=== PATIENT | female | born 1975 | race Caucasian/White ===

== ENCOUNTER → 2025-05-07 | Outpatient (CLI) | payer BC ==
[~2025-05-07] MED LIST: GADOTERATE MEGLUMINE 10 MMOL/20 ML VIAL IV ONE
--- NOTE | 2025-05-07 19:57 | HMCIMG ---
EXAM: MR Lumbar Spine Without and With Intravenous Contrast. CLINICAL HISTORY: Radiculopathy. Thoracolumbar region. TECHNIQUE: Magnetic resonance images of the lumbar spine in multiple planes. CONTRAST: Yes. COMPARISON: None. FINDINGS: For this examination, spinal levels were labeled assuming five non-rib bearing, lumbar-type vertebrae with the inferior labeled L5. No acute fracture. Mild levoscoliosis. Normal lordotic curvature. Mild multilevel spondylosis is evident by small marginal osteophytes and facet joint arthropathy. Mild multilevel disc desiccation noted. Mild facet joint synovitis at the L3-L4, L4-L5, and L5-S1 levels. Normal vertebral body and disc heights. Modic type II changes in the anterior corners of the contiguous endplates at the T11-T12, T12-L1, L1-L2, and L2-L3 levels. Conus medullaris terminates at the T12-L1 level. No abnormal epidural masses. Mild subcutaneous edema in the lower back. Small, simple cortical cyst in the upper pole of right kidney. Individual spinal levels are described as follows: T12-L1: No disc bulge or herniation. No neural foraminal, lateral recess or spinal canal stenosis. L1-L2: No disc bulge or herniation. No neural foraminal, lateral recess or spinal canal stenosis. L2-L3: No disc bulge or herniation. No neural foraminal, lateral recess or spinal canal stenosis. L3-L4: 3 mm left predominant disc osteophyte complex bulge causing mild indentation on the anterior thecal sac. No neural foraminal or lateral recess stenosis. L4-L5: 2 mm disc osteophyte complex bulge causing mild indentation on the anterior thecal sac. No neural foraminal or lateral recess stenosis. L5-S1: No disc bulge or herniation. No neural foraminal, lateral recess or spinal canal stenosis. IMPRESSION: Mild levoscoliosis. Mild multilevel spondylosis. Mild facet joint synovitis at the L3-L4, L4-L5, and L5-S1 levels. Modic type II changes in the anterior corners of the contiguous endplates at the T11-T12, T12-L1, L1-L2, and L2-L3 levels. Mild indentation on the anterior thecal sac the L3-L4 and L4-L5 levels. [facility]
--- NOTE | 2025-05-07 20:19 | HMCIMG ---
EXAM: MR Thoracic Spine Without and With Intravenous Contrast. CLINICAL HISTORY: Radiculopathy. Thoracolumbar region. TECHNIQUE: Magnetic resonance images of the thoracic spine in multiple planes. CONTRAST: Yes. COMPARISON: None. FINDINGS: The cervicothoracic and thoracolumbar junction are intact. No acute fracture. Mild levoscoliosis. Multilevel spondylosis is evident by marginal osteophytes and facet joint arthropathy. Normal vertebral body and disc heights. Hemangiomas noted in T7 and T10 vertebral bodies. The thoracic cord is in an anatomic location without abnormal signals. No abnormal extra-axial masses are present. Small cyst noted in segment 7 of the liver. Moderate sized hiatus hernia noted. [id number] findings are as follows: C7-T1: No disc bulge or herniation. No neural foraminal, lateral recess or spinal canal stenosis. T1-T2: No disc bulge or herniation. No neural foraminal, lateral recess or spinal canal stenosis. T2-T3: 2 mm left paracentral disc osteophyte complex bulge causing mild indentation on the anterior thecal sac. No neural foraminal or lateral recess stenosis. T3-T4: Left facet joint arthropathy causing mild indentation on the posterior thecal sac. No disc bulge or herniation. No neural foraminal, or lateral recess stenosis. T4-T5: Left facet joint arthropathy causing mild left foraminal narrowing. No disc bulge or herniation. No neural foraminal, or spinal canal stenosis. T5-T6: Left facet joint arthropathy causing mild left foraminal narrowing. No disc bulge or herniation. No neural foraminal, or spinal canal stenosis. T6-T7: Left facet joint arthropathy causing mild left foraminal narrowing. No disc bulge or herniation. No neural foraminal, or spinal canal stenosis. T7-T8: No disc bulge or herniation. No neural foraminal, lateral recess or spinal canal stenosis. T8-T9: No disc bulge or herniation. No neural foraminal, lateral recess or spinal canal stenosis. T9-T10: No disc bulge or herniation. No neural foraminal, lateral recess or spinal canal stenosis. T10-T11: No disc bulge or herniation. No neural foraminal, lateral recess or spinal canal stenosis. T11-T12: No disc bulge or herniation. No neural foraminal, lateral recess or spinal canal stenosis. T12-L1: No disc bulge or herniation. No neural foraminal, lateral recess or spinal canal stenosis. IMPRESSION: Mild levoscoliosis. Mild multilevel spondylosis. Mild indentation on the anterior thecal sac at the T2-T3 level. Mild indentation on the posterior thecal sac at the T3-T4 level. Mild left foraminal narrowing at the T4-T5, T5-T6, T6-T7 levels. Moderate sized hiatus hernia. /[place]
== END | disposition home or self-care (01) ==
LOC: RAH 08:55
PROVIDERS: ATTEND Internal Medicine
DX: M47.24 Other spondylosis with radiculopathy, thoracic region (principal); M41.84 Other forms of scoliosis, thoracic region; M47.26 Other spondylosis with radiculopathy, lumbar region; K76.89 Other specified diseases of liver; M48.04 Spinal stenosis, thoracic region; M65.88 Other synovitis and tenosynovitis, other site; M25.78 Osteophyte, vertebrae; K44.9 Diaphragmatic hernia without obstruction or gangrene; R60.1 Generalized edema; N28.1 Cyst of kidney, acquired
CPT/HCPCS: 72158; 72157; A9575